=== PATIENT | male | born 1985 | race Caucasian/White ===

== ENCOUNTER 2017-05-07 17:42 | Emergency (ER) | payer MEDICAID, SELFPAY ==
[2017-05-07 17:54] VITALS: RESP 18; TEMP 98.6; O2SAT 100; BMI 32.9
--- NOTE | 2017-05-07 18:27 | ED PDOC ---
Arrival/HPI - General Chief Complaint: Abnormal Skin Integrity Time Seen by Provider: 05/07/17 17:43 Historian: Patient - History of Present Illness Narrative History of Present Illness (Text): 05/07/17 18:00This 31 yo male with pmh Eczema, presents to this ED c/o worsening of eczema x 5 weeks. 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 Patient stated topical steroid does not relief his rash, but oral steroid would usually helps better. Patient noted two pustules on his right temporal scalp area x 2 days ago. Patient denies other complains, fever, sick contacts or recent travel. Time/Duration: > month Symptom Onset: Gradual Symptom Course: Worsening Context: Home Past Medical History - Provider Review Nursing Documentation Reviewed: Yes - Past Medical History Past Medical History: No Previous - Cardiac Hx Cardiac Disorders: No - Pulmonary Hx Respiratory Disorders: No - Neurological Hx Neurological Disorder: No - HEENT Hx HEENT Disorder: No - Renal Hx Renal Disorder: No - Endocrine/Metabolic Hx Endocrine Disorders: No - Hematological/Oncological Hx Blood Disorders: No - Integumentary Hx Dermatological Disorder: Yes Hx Eczema: Yes - Musculoskeletal/Rheumatological Hx Musculoskeletal Disorders: No - Gastrointestinal Hx Gastrointestinal Disorders: No - Genitourinary/Gynecological Hx Genitourinary Disorders: No - Psychiatric Hx Depression: No Hx Emotional Abuse: No Hx Physical Abuse: No Hx Substance Use: No - Past Surgical History Past Surgical History: No Previous - Anesthesia Hx Anesthesia: Yes - Suicidal Assessment Feels Threatened In Home Enviroment: No Family/Social History - Physician Review Nursing Documentation Reviewed: Yes Family/Social History: Other (non-contributory) Smoking Status: Never Smoked Hx Alcohol Use: No Hx Substance Use: No Hx Substance Use Treatment: No Allergies/Home Meds Allergies/Adverse Reactions: Allergies No Known Allergies Allergy (Verified 05/07/17 17:54) Review of Systems - Review of Systems Constitutional: Normal. absent: Fatigue, Weight Change, Fevers Eyes: Normal ENT: Normal Respiratory: Normal. absent: SOB, Cough Cardiovascular: Normal. absent: Chest Pain, Palpitations Gastrointestinal: Normal. absent: Abdominal Pain, Nausea, Food Intolerance Genitourinary Male: Normal Musculoskeletal: Normal Skin: Rash (scalp and face rash) Neurological: Normal. absent: Headache, Dizziness, Focal Weakness, Gait Changes , Speech Changes, Disequilibrium, Seizure Endocrine: Normal. absent: Polyuria Hemo/Lymphatic: Normal Psychiatric: Normal Physical Exam Vital Signs Temp Pulse Resp BP Pulse Ox 05/07/17 17:54 98.6 F 99 H 18 155/100 H 100 05/07/17 17:53 98.6 F 99 H 18 155/100 H 100 Temperature: Afebrile Blood Pressure: Normal Pulse: Regular Respiratory Rate: Normal Appearance: Positive for: Well-Appearing, Non-Toxic, Comfortable Pain Distress: None Mental Status: Positive for: Alert and Oriented X 3 - Systems Exam Head: Present: Atraumatic, Normocephalic, Other ((+) scalp rash over frontal scalp. (+) smal areas of same rash over face. Rash blanches on palpation. Rash appears as plaque ) Pupils: Present: PERRL Extroacular Muscles: Present: EOMI Conjunctiva: Present: Normal Mouth: Present: Moist Mucous Membranes Neck: Present: Normal Range of Motion Respiratory/Chest: Present: Clear to Auscultation, Good Air Exchange. No: Respiratory Distress, Accessory Muscle Use Cardiovascular: Present: Regular Rate and Rhythm, Normal S1, S2. No: Murmurs Abdomen: Present: Normal Bowel Sounds. No: Tenderness, Distention, Peritoneal Signs Back: Present: Normal Inspection Upper Extremity: Present: Normal Inspection, Normal ROM, NORMAL PULSES. No: Cyanosis, Edema Lower Extremity: Present: Normal Inspection, NORMAL PULSES, Normal ROM. No: Edema Neurological: Present: GCS=15, CN II-XII Intact, Speech Normal Skin: Present: Warm, Dry, Normal Color. No: Rashes Psychiatric: Present: Alert, Oriented x 3, Normal Insight, Normal Concentration Medical Decision Making ED Course and Treatment: 05/07/17 18:31 Re-evaluation. Patient feels better. Discussed results and plan with patient who expresses understanding. All questions answered and there is agreement with the plan to discharge home with instructions. Patient stable for discharge. Return if symptoms persist or worsen. I reviewed with the patient the risk involved of using Prednisone, even small doses. Risks are the not only, but including AVN, DM, glaucoma, osteoporosis, renal failure, liver failure, worsening of rash, mood disorder, weight gain. Patient understood risk, and he is still requesting to have a prescription for Prednisone for 10 days. He said he will stop Prednisone if rash improves sooner. Re-evaluation Time: 18:31 Reassessment Condition: Re-examined, Improved - Medication Orders Current Medication Orders: Discontinued Medications Doxycycline Hyclate (Doryx) 100 mg PO STAT STA PRN Reason: Protocol Stop: 05/07/17 18:10 Last Admin: 05/07/17 18:18 Dose: 100 mg Disposition/Present on Arrival - Present on Arrival Any Indicators Present on Arrival: No History of DVT/PE: No History of Uncontrolled Diabetes: No Urinary Catheter: No History of Decub. Ulcer: No History Surgical Site Infection Following: None - Disposition Have Diagnosis and Disposition been Completed?: Yes Diagnosis: Rash and nonspecific skin eruption Disposition: HOME/ ROUTINE Disposition Time: 18:32 Patient Plan: Discharge Condition: GOOD Discharge Instructions (ExitCare): Dermatitis (ED) Additional Instructions: Call Dr. Cortez Cell Room Supervisor for revaluation of rash. Take medication as instructed with food. Stop medication and return to emergency if rash worsen while taking medication. Apply Vaseline over rash to keep it moist. If rash resolve, you can stop Prednisone Prescriptions: Doxycycline Monohydrate 100 mg PO BID #20 tablet Prednisone [Deltasone] 60 mg PO DAILY #18 tablet Referrals: Ronda Cortez MD [Staff Provider] - Follow up with primary
[2017-05-07 19:15] VITALS: BP 135/89; PULSE 75
--- NOTE | 2017-05-08 11:40 | RAD ---
PROCEDURE: Radiographs of the Right Shoulder HISTORY: pain COMPARISON: No prior. FINDINGS: BONES: Normal. No fracture. JOINTS: Normal. Glenohumeral and acromioclavicular joints preserved. No osteoarthritis. SOFT TISSUES: Normal. OTHER FINDINGS: None. IMPRESSION: Normal radiographs of the right shoulder.
== END 2017-05-07 19:15 | disposition home or self-care (01) ==
LOC: ED 17:42
DX: R21 Rash and other nonspecific skin eruption (principal)